=== PATIENT | female | born 1980 | race Caucasian/White ===

== ENCOUNTER 2017-06-18 12:37 | Emergency (ER) | payer MEDICAID ==
[2017-06-18 15:38] VITALS: BP 134/72
== END 2017-06-18 15:38 | disposition home or self-care (01) ==
LOC: ED 12:37
DX: H60.91 Unspecified otitis externa, right ear (principal); Z98.890 Other specified postprocedural states

== ENCOUNTER 2018-01-31 18:21 | Emergency (ER) | payer MEDICAID ==
[~2018-01-31] VITALS: Ht 157.5 cm; Wt 91.2 kg
[2018-01-31 20:09] VITALS: Ht 157.5 cm; Wt 91.2 kg
[2018-01-31 20:43] VITALS: BP 108/71
== END 2018-01-31 20:43 | disposition home or self-care (01) ==
LOC: ED 18:21
DX: J06.9 Acute upper respiratory infection, unspecified (principal)